=== PATIENT | female | born 2005 | race Hispanic/Latino ===

== ENCOUNTER 2023-06-01 03:15 | Inpatient (IN) | payer MEDICAID, SELFPAY ==
[2023-06-01 03:27] VITALS: BMI 29.8
[2023-06-01] MEDS ORDERED: Acetaminophen 500 MG TAB PO PRN (04:32)
[2023-06-01] MEDS ORDERED: Methylergonovine 0.2 MG/ML VIAL IM PRN (04:32)
[2023-06-01] MEDS ORDERED: Ondansetron PF 4 MG/2 ML Vial IVP PRN (04:32)
[2023-06-01] MEDS ORDERED: Ibuprofen 800 MG TAB PO PRN (04:32)
[2023-06-01] MEDS ORDERED: Diphenoxylate HCl/Atropine Tablet PO PRN (04:32)
[2023-06-01] MEDS ORDERED: Misoprostol 200 MCG TAB PR PRN (04:32)
[2023-06-01] MEDS ORDERED: Carboprost 250 MCG/ML AMP IM PRN (04:32)
[2023-06-01] MEDS ORDERED: hydrALAZINE 20 MG/ML VIAL SLOW IVP PRN ×2 (04:32→15:44)
[2023-06-01] MEDS ORDERED: Lidocaine 1% (PF) 30 ML VIAL SC PRN (04:32)
[2023-06-01] MEDS ORDERED: Tranexamic Acid 1,000 MG/10 ML VIAL IVP PRN (04:32)
[2023-06-01] MEDS ORDERED: Promethazine HCl 25 MG/ML VIAL IM PRN (04:32)
[2023-06-01] MEDS ORDERED: Oxytocin 30 units/NS 500 ML 500 ML IV SCH ×3 (04:45→09:29)
[2023-06-01] MEDS ORDERED: Lactated Ringer's 1,000 ML IV SCH (04:45)
[2023-06-01 04:47] LABS: Fetal Membranes Rupture RUPTURE DETECTED (No Rupture)
[2023-06-01 05:56] LABS: Hemoglobin 11.3 g/dL (12.0-15.5); Mean Corpuscular HGB CONC 33.2 g/dL (32.0-36.0); Mean Corpuscular Hemoglobin 30.1 pg (27.0-33.0); Mean Corpuscular Volume 90.4 fl (81.6-98.3); Mean Platelet Volume 10.5 fl (7.4-10.4); Platelet Count 268 10x3/uL (150-450); RBC Distribution Width 14.3 % (11.5-14.5); Red Blood Cell (RBC) Count 3.76 10x6/uL (3.90-5.03); White Blood Cell (WBC) Count 8.3 10x3/uL (3.5-10.5)
[2023-06-01 06:21] LABS: Syphilis Antibody Nonreactive (Nonreactive); Syphilis Antibody Index 0.03 S/CO (<1.00 Non-Reactive)
[2023-06-01 06:22] LABS: HBSAg Index 0.14 S/CO (0-0.99); Hep B Surf Ag - L&D Non-Reactive S/CO (NonReactive)
[2023-06-01] MEDS ORDERED: fentaNYL 50 mcg/mL 1 mL Vial SLOW IVP SCH ×2 (07:30→11:30)
[2023-06-01] MEDS ORDERED: Ibuprofen 800 MG TAB PO SCH (14:00)
[2023-06-01] MEDS ORDERED: Milk Of Magnesia 30 ML UDCUP PO PRN (15:44)
[2023-06-01] MEDS ORDERED: Boostrix 0.5 ML (Tdap) VIAL (>/=7 yrs of age) IM ONE (15:44)
[2023-06-01] MEDS ORDERED: Acetaminophen 325 MG TAB PO PRN (15:44)
[2023-06-01] MEDS ORDERED: diphenhydrAMINE 25 MG CAP PO PRN (15:44)
[2023-06-01] MEDS ORDERED: Lanolin Ointment 7 GM TUBE TOP PRN (15:44)
[2023-06-01] MEDS ORDERED: Bisacodyl 10 MG SUPP PR PRN (15:44)
[2023-06-01] MEDS: Ferrous Sulfate 325 MG TAB PO SCH (17:13)
[2023-06-01] MEDS: Ibuprofen 800 MG TAB PO SCH ×2 (17:14→23:24)
[2023-06-01] MEDS: Docusate 100 MG CAP PO SCH (21:35)
[2023-06-02] MEDS: Prenatal Vitamin 1 TAB PO SCH (09:11)
[2023-06-02] MEDS: Docusate 100 MG CAP PO SCH ×2 (09:11→22:05)
[2023-06-02] MEDS: Ibuprofen 800 MG TAB PO SCH ×2 (09:12→15:56)
[2023-06-03] MEDS: Ibuprofen 800 MG TAB PO SCH ×2 (00:09→08:55)
[2023-06-03] MEDS: Ferrous Sulfate 325 MG TAB PO SCH (07:22)
[2023-06-03 08:03] VITALS: BP 101/66; TEMP 98.3
[2023-06-03] MEDS: Prenatal Vitamin 1 TAB PO SCH (08:55)
[2023-06-03] MEDS: Docusate 100 MG CAP PO SCH (08:55)
== END 2023-06-03 13:00 | disposition home or self-care (01) | DRG 807 ==
LOC: CSHLD/OP 03:15 → CSHLD 04:21 → CSHPP 15:40
PROVIDERS: ADMIT Obstetrics & Gynecology; ATTEND Obstetrics & Gynecology
PROC: 10E0XZZ Delivery of Products of Conception, External Approach (ICD-10-PCS; principal; 2023-06-01)
DX: O42.02 Full-term premature rupture of membranes, onset of labor within 24 hours of rupture (principal); Z37.0 Single live birth; Z3A.38 38 weeks gestation of pregnancy; Z79.899 Other long term (current) drug therapy
CPT/HCPCS: 84112; 86780; 86850; 86900; 86901; 87340; 99285; J2590; J3010